=== PATIENT | female | born 1955 | race Caucasian/White ===

== ENCOUNTER 2022-05-17 10:41 | Emergency (ER) | payer MEDICARE, BC ==
[~2022-05-17] VITALS: Ht 165.1 cm; Wt 59.0 kg
[2022-05-17] MEDS ORDERED: TDAP DIPH,PERTUSS,TET VAC/PF 0.5 ML DISP.SYRIN IM ONE ×2 (11:30→11:34)
--- NOTE | 2022-05-17 11:30 | NUR ---
IN ED FOR LACERATION TO LEFT FOOT 2ND DIGIT. DR. ABRAHAM ITTIGATED WITH NS AND SET UP FOR LACERATION REPAIR .
[2022-05-17] MEDS ORDERED: NEOMY/BACITRAC/POLYMI OINT 28.35 GM TUBE ONE (11:33)
--- NOTE | 2022-05-17 11:43 | NUR ---
LAC REPAIR USING SUTURS BY DR. ABRAHAM LEFT FOOT 2ND DIGIT. MED WITH TDAP LEFT DELTOID. NO ALLERGIC REACTION NOTED.
[2022-05-17] MEDS ORDERED: LIDOCAINE HCL 1% 20 ML VIAL ONE (11:49)
--- NOTE | 2022-05-17 12:00 | NUR ---
DISCUSSED AND GIVE PATIENT DISCHARGE INSTRUCTIONS AND PATIENT VERBALIZED UNDERSTANDING. 98.1,66 HR,16, B/P 113/71 AND SAT ON RA 98%.LEFT FOOT DSG DCI OVER SUTURES. USED GAUZE AND APPLY TRIPPLE ABT OINT.
--- NOTE | 2022-05-17 12:02 | NUR ---
PT SEEN AND EVALUATED BY DR ABRAHAM. LACERATION SUTURED UNDER LOCAL ANESTHESIA. WOUND CARE RENDERED PER MD ORDER.
[2022-05-17 12:04] VITALS: BP 123/75
== END 2022-05-17 12:05 | disposition home or self-care (01) ==
LOC: ER 10:41
DX: S91.312A Laceration without foreign body, left foot, initial encounter (principal); S91.115A Laceration without foreign body of left lesser toe(s) without damage to nail, initial encounter; W26.0XXA Contact with knife, initial encounter; Y92.89 Other specified places as the place of occurrence of the external cause
CPT/HCPCS: 99283; 90715; 90471; 12002; J3490; A4663